=== PATIENT | male | born 1960 | race Caucasian/White ===

== ENCOUNTER 2024-02-13 13:20 | Emergency (ER) | payer BC ==
[2024-02-13] MEDS ORDERED: Naloxone 0.4 MG/ML SDV IVPUSH PRN (14:32)
[2024-02-13 14:47] LABS: BASE EXCESS VENOUS 1.9 mm/L; BICARBONATE,VENOUS 25.5 mmol/L; CARBOXYHEMOGLOBIN 2.9 % (0.0-1.6); METHEMOGLOBIN 0.9 %; O2 SATURATION VENOUS 65.8; OXYHEMOGLOBIN 63.3 %; PCO2 VENOUS 38.7 mm/Hg; PH,VENOUS 7.435 (7.350-7.450); TOTAL HEMOGLOBIN 17.8 g/dL (13.5-18.0)
[2024-02-13 14:48] LABS: BASOPHILS ABSOLUTE AUTO 0.03 K/uL (0.00-0.10); BASOPHILS PERCENT AUTO 0.6 % (0.1-1.3); EOSINOPHILS PERCENT AUTO 0.2 % (0.0-5.4); HEMATOCRIT 48.1 % (38.4-49.7); HEMOGLOBIN 17.1 g/dL (12.9-16.9); IMMATURE GRAN PERCENT AUTO 0.4 % (0.0-0.7); LYMPHOCYTES ABSOLUTE AUTO 0.45 K/uL (0.8-3.3); LYMPHOCYTES PERCENT AUTO 8.6 % (11.4-47.7); MEAN CORPUSCULAR HEMOGLOBIN 30.8 pg (31.6-35.5); MEAN CORPUSCULAR HGB CONC 35.6 g/dL (31.6-35.5); MEAN CORPUSCULAR VOLUME 86.5 fL (81.4-99.0); MONOCYTES PERCENT AUTO 7.7 % (3.3-12.6); NEUTROPHILS ABSOLUTE AUTO 4.31 K/uL (1.0-7.6); NEUTROPHILS PERCENT AUTO 82.5 % (40.0-78.1); PLATELET COUNT,PLT 154 K/uL (130-375); RED BLOOD CELL COUNT 5.56 M/uL (4.14-5.76); WHITE BLOOD CELL COUNT,WBC 5.2 K/uL (3.2-11.0)
[2024-02-13 14:49] LABS: EOSINOPHILS ABSOLUTE AUTO 0.01 K/uL (0.00-0.40); IMMATURE GRAN ABSOLUTE AUTO 0.02 K/uL (0.00-0.23)
[2024-02-13 14:50] LABS: PO2 VENOUS 33.8 mm/Hg
[2024-02-13 14:56] LABS: CORONAVIRUS COVID-19 NAA NEGATIVE (NEGATIVE); INFLUENZA A NAA NEGATIVE (NEGATIVE); INFLUENZA B NAA NEGATIVE (NEGATIVE); RESPIRATORY SYNCYTIAL VIR NAA NEGATIVE (NEGATIVE)
[2024-02-13] MEDS: Sodium Chloride 0.9% 1,000 ML IV SCH (15:00)
[2024-02-13] MEDS: Ondansetron 4 MG/2 ML SDV IVPUSH PRN (15:01)
[2024-02-13] MEDS: HYDROmorphone 0.5 MG/0.5 ML Syringe IVPUSH PRN (15:02)
[2024-02-13 15:05] LABS: INR 1.2; PROTHROMBIN TIME 12.1 sec (9.2-10.6)
[2024-02-13 15:09] LABS: A/G RATIO 0.7 (1.2-2.2); ALANINE AMINOTRANSFERASE,ALT 24 U/L (12-78); ALBUMIN 3.4 g/dL (3.4-5.0); ALKALINE PHOSPHATASE 85 U/L (46-116); ASPARTATE AMNIOTRANSFERASE,AST 23 U/L (15-37); BILIRUBIN TOTAL 0.8 mg/dL (0.2-1.0); BLOOD UREA NITROGEN,BUN 17 mg/dL (7-18); CALCIUM 8.8 mg/dL (8.5-10.1); CARBON DIOXIDE,CO2 26 mmol/L (21-32); CHLORIDE,CL 98 mmol/L (100-108); CREATININE 1.5 mg/dL (0.8-1.3); EST CRCL DRUG DOSING (CG) 48.13 mL/min; ESTIMATED GFR 52 mL/min (>60); GLUCOSE RANDOM 100 mg/dL (74-106); POTASSIUM,K 4.3 mmol/L (3.6-5.2); SODIUM,NA 132 mmol/L (140-148); TROPONIN I HIGH SENSITIVITY 8.9 pg/mL (<=60.3)
[2024-02-13 15:12] LABS: ANION GAP 12.3 mmol/L (5.0-14.0)
[2024-02-13 15:50] LABS: APPEARANCE,URINE CLEAR (CLEAR); BILIRUBIN,URINE NEGATIVE (NEGATIVE); COLOR,URINE YELLOW (YELLOW); GLUCOSE,URINE NEGATIVE (NEGATIVE); KETONES,URINE NEGATIVE (NEGATIVE); LEUKOCYTE ESTERASE,URINE NEGATIVE (NEGATIVE); NITRITE,URINE NEGATIVE (NEGATIVE); OCCULT BLOOD,URINE SMALL (NEGATIVE); PH,URINE 5.5 (5.0-8.0); PROTEIN,URINE NEGATIVE (NEGATIVE); UROBILINOGEN,URINE 0.2 EU/dL (0.2-1.0)
[2024-02-13 15:56] LABS: AMORPHOUS SEDIMENT,URINE NOT SEEN; BACTERIA,URINE NOT SEEN; EPITHELIAL CELLS,URINE NOT SEEN; MUCUS,URINE NOT SEEN; RBC,URINE 0-5 (0-5); WBC,URINE NOT SEEN (0-5)
[2024-02-13 16:12] LABS: LYME AB IgG Negative (Negative); LYME AB IgM Negative (Negative)
[2024-02-13] MEDS: Acetaminophen 500 MG Tab PO ONE (17:29)
[2024-02-13] MEDS: Ibuprofen 600 MG Tab PO ONE (17:38)
[2024-02-13] MEDS: Sodium Chloride 0.9% 100 ML IV ONE (18:26)
[2024-02-13] MEDS: Sodium Chloride 0.9% 10 ML Syringe FLUSH ONE (18:26)
[2024-02-13] MEDS: Iopamidol 755 Mg/ML 100 ML Bottle IV ONE (18:26)
[2024-02-13] MEDS: Doxycycline 100 MG in Sodium Chloride 0.9% 100 ML IV ONE (18:44)
[2024-02-17 18:17] LABS: ANAPLASMA PHAGOCYTOPHILUM PCR Detected; BABESIA MICROTI BY PCR Not Detected; BABESIA SPECIES BY PCR Not Detected; EHRLICHIA CHAFFEENSIS BY PCR Not Detected; EHRLICHIA EWINGII/CANIS BY PCR Not Detected; EHRLICHIA MURIS-LIKE BY PCR Not Detected
== END 2024-02-13 21:36 | disposition home or self-care (01) ==
LOC: JP.ED 13:20
DX: E86.0 Dehydration (principal); Z79.01 Long term (current) use of anticoagulants; Z79.899 Other long term (current) drug therapy; W57.XXXA Bitten or stung by nonvenomous insect and other nonvenomous arthropods, initial encounter
CPT/HCPCS: 0241U; 36415; 71045; 71275; 80053; 81001; 82803; 83605; 84145; 84484; 85025; 85379; 85610; 86618; 87468; 87469; 87484; 87798; 93005; 93010; 96361; 96365; 96375; 99284; 99285; A9270; J1170; J2405; J3490; J7030; Q9967

== ENCOUNTER 2024-04-04 06:41 | Day surgery (SDC) | payer BC ==
[2024-04-04] MEDS: Lactated Ringers 1,000 ML IV SCH (06:55)
[2024-04-04] MEDS ORDERED: Propofol 200 MG/20 ML SDV ONE (07:04)
[2024-04-04] MEDS ORDERED: Midazolam 1 MG/ML 2 ML SDV ONE (07:04)
[2024-04-04] MEDS ORDERED: fentaNYL 50 MCG/ML SDV ONE (07:04)
== END 2024-04-04 09:12 | disposition home or self-care (01) ==
LOC: JP.SDS 06:41
PROVIDERS: ATTEND Family Medicine
DX: Z12.11 Encounter for screening for malignant neoplasm of colon (principal); J45.909 Unspecified asthma, uncomplicated; E78.5 Hyperlipidemia, unspecified; G47.33 Obstructive sleep apnea (adult) (pediatric); Z86.010 Personal history of colon polyps; Z85.038 Personal history of other malignant neoplasm of large intestine; Z91.018 Allergy to other foods
CPT/HCPCS: 45378; J2250; J2704; J3010; J7120